=== PATIENT | female | born 1985 | race Caucasian/White ===

== ENCOUNTER 2018-10-08 13:43 | Emergency (ER) | payer SELFPAY ==
[~2018-10-08] VITALS: Ht 160 cm; Wt 81.8 kg
[~2018-10-08 13:43] MED LIST: B COMPLEX1 TA4 PO; BUSPAR10 MG PO; CEPHALEXIN500 M1 PO; DESYREL 50MG50 MG PO; FE 50160 MG PO; FERROUS SULFATE27 MG PO; FLEXERIL 1010 MG/TAB PO; IRON50 MG PO; METRONIDAZOLE500 MG PO; MIRENA52 MG IY; NO HOME MEDICATIONS; NORCO 325 MG-51 TAB PO; ONDANSETRON4 M1 PO; PERCOCET 325 MG1 TA2 PO; PHARMAC PO; PHENERGAN 25 TA25 MG PO; PHENERGAN25 MG RC; PRENATAL1 TA1 PO; PROVENTIL0.09 MG/A1 IH; SEPTRA DS 8001 TAB PO; TESSALON P100 MG/CAP PO; VIT B-6100 MG PO; ZITHROMAX Z PA250 MG PO; ZOLOFT 100MG100 MG PO; ZOLOFT 50MG50 MG PO
[2018-10-08 13:50] VITALS: TEMP 99.1
[2018-10-08 15:14] LABS: STREP SCREEN POSITIVE
[2018-10-08 16:15] VITALS: BP 110/72; PULSE 92
== END 2018-10-08 16:15 | disposition home or self-care (01) ==
LOC: COL.ER 13:43
PROVIDERS: Emergency Medicine
DX: J03.00 Acute streptococcal tonsillitis, unspecified (principal); F41.9 Anxiety disorder, unspecified; Z90.49 Acquired absence of other specified parts of digestive tract; F17.210 Nicotine dependence, cigarettes, uncomplicated
CPT/HCPCS: J0561; J1885